=== PATIENT | male | born 1970 | race Caucasian/White ===

== ENCOUNTER 2016-12-08 18:37 | Inpatient (IN) | payer OTHER ==
[~2016-12-08] VITALS: Ht 167.6 cm; Wt 81.6 kg
[~2016-12-08 18:37] MED LIST: METFORMIN HYDR500 MG PO
[2016-12-08 18:51] VITALS: BP 130/77
--- NOTE | 2016-12-08 21:10 | NUR ---
PT TAKEN TO BED 6
--- NOTE | 2016-12-08 21:12 | NUR ---
46/M WITH C/O DESCRIBES NUMBNESS TYPE PAIN OVER RIGHT FRONTAL PARIETAL AREA X 11AM TODAY---DENIES INJURY, NO N/V , DENIES DIZZINESS, BLURRED VISION OVER OD, DENIES WEAKNESS. 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 HX DM, CAD. RX CARBETALOL, ASA, METFORMIN, GLIPIZIDE, LANTUS. ERMD AWARE.
--- NOTE | 2016-12-08 21:22 | NUR ---
Dr. Cervantes evaluating patient at bedside.
--- NOTE | 2016-12-08 22:00 | NUR ---
PT RETURN FROM CT
--- NOTE | 2016-12-08 22:27 | NUR ---
ERMD AWARE OF BSL 191MG/DL.
[2016-12-08] MEDS ORDERED: ASPIRIN 325 MG TAB PO ONE (22:40)
[2016-12-08] MEDS ORDERED: LORazepam 2 MG/ML VIAL IVP PRN (23:05)
[2016-12-08] MEDS ORDERED: MORPHINE SULFATE 2 MG/ML SYR IVP PRN (23:05)
[2016-12-08] MEDS ORDERED: ONDANSETRON 4 MG/2 ML VIAL IVP PRN (23:05)
[2016-12-08] MEDS ORDERED: APAP/BUTAL/CAFF 325/50/40 MG 1 TAB PO PRN (23:10)
[2016-12-08] MEDS ORDERED: DEXTROSE 50% 50 ML SYR IVP PRN (23:15)
[2016-12-08] MEDS ORDERED: NACL 0.9% 1,000 ML IV ONE (23:15)
--- NOTE | 2016-12-08 23:25 | NUR ---
Patient will be admitted to care of DR. PERERA. Admited to TELEMETRY. Will go to room 122B. Belongings list completed. Report GIVEN TO SURAJ LADD.
--- NOTE | 2016-12-08 23:25 | NUR ---
VISUAL ACUITY RIGHT EYE 20/40, LEFT EYE 20/50. DR. GAMEZ AWARE
--- NOTE | 2016-12-09 | NUR ---
ADMITTED 46YEARS OLD MALE FROM ER VIA IVONE, CC:HEADACHE. Dx:R/O CVA. SEE NURSING ADMISSION ASSESSMENT AND HISTORY. ORIENTED TO ROOM AND UNIT ROUTINES. COMPLETE BODY ASSESSMENT WITH DEPARTMENT EDITOR ROY AT BEDSIDE. PLAN OF CARE DISCUSSED WITH PATIENT AT BEDSIDE. CALL LIGHT WITHIN REACH.
[2016-12-09 00:08] VITALS: BP 138/87
[2016-12-09] MEDS: BLOOD GLUCOSE MONITORING 1 DEV DEV FS SCH ×4 (01:06→16:29)
[2016-12-09 04:48] VITALS: BP 133/65
--- NOTE | 2016-12-09 04:51 | NUR ---
SLEEPING WELL. NO COMPLAINS. VITAL SIGNS STABLE. CALL LIGHT WITHIN REACH.
[2016-12-09] MEDS: INSULIN LISPRO SLIDING SCALE 100 UNITS/ML VIAL SUBQ PRN ×3 (05:52→16:39)
--- NOTE | 2016-12-09 07:02 | NUR ---
ENDORSED CARE AT BEDSIDE WITH CHARU RUELAS, PATIENT IN STABLE CONDITION.
--- NOTE | 2016-12-09 07:03 | NUR ---
ALERT AND ORIENTED X4, NO SIGNS OF ACUTE DISTRESS, BREATHING EVEN AND UNLABORED BILATERALLY, ABDOMEN SOFT WITH BOWEL SOUNDS PRESENT IN ALL 4 QUADRANTS, SKIN WARM, DRY AND INTACT, BOWEL AND BLADDER CONTINENCE, AMBULATES INDEPENDENTLY, COMPLAINT OF PAIN 4/10 ON RIGHT SIDE OF HEAD WILL MEDICATE ORDERED PER PRN'S, BED IN LOW POSITION WITH BILATERAL HALF SIDE RAILS UP, CALL LIGHT WITHIN REACH.
[2016-12-09 08:00] VITALS: BP 122/78
--- NOTE | 2016-12-09 08:04 | NUR ---
PATIENT HAS BEEN SCREENED AND CATEGORIZED MODERATE NUTRITION RISK. PATIENT WILL BE SEEN WITHIN 3-5 DAYS OF ADMISSION. 12/11/16-12/13/[address]
[2016-12-09] MEDS ORDERED: LORazepam 1 MG TAB PO PRN (08:10)
[2016-12-09] MEDS ORDERED: ZOLPIDEM 5 MG TAB PO PRN (08:10)
[2016-12-09] MEDS: HYDROcodone/APAP 5/325 MG 1 TAB TAB PO PRN ×2 (08:22→16:32)
[2016-12-09] MEDS: metFORMIN 500 MG TAB PO SCH ×2 (08:22→16:32)
--- NOTE | 2016-12-09 08:30 | NUR ---
RECEIVED NEW ORDERS FROM DR ROSALES FOR UA, SCD'S, NORMAL SALINE IV FLUIDS AT 80ML PER HOUR, AND MEDS WILL EXECUTE ORDERED.
[2016-12-09] MEDS: NACL 0.9% 1,000 ML IV SCH ×2 (08:36→16:33)
[2016-12-09] MEDS ORDERED: ATORVASTATIN 20 MG TAB PO SCH (09:00)
[2016-12-09] MEDS ORDERED: ECOTRIN 81 MG TABEC PO SCH (09:00)
[2016-12-09] MEDS ORDERED: DOCUSATE SODIUM 100 MG GELCAP PO SCH (09:00)
--- NOTE | 2016-12-09 10:43 | NUR ---
FAXED INITIAL REVIEW TO [facility] [phone] PHONE [phone]
[2016-12-09] MEDS ORDERED: METHOCARBAMOL 500 MG TAB PO PRN (10:55)
--- NOTE | 2016-12-09 10:59 | NUR ---
RECEIVED NEW ORDERS FROM DR ROSALES FOR NEW MEDICATION AND K PAD, WILL EXECUTE ORDERED.
[2016-12-09 12:00] VITALS: BP 139/77
[2016-12-09 16:00] VITALS: BP 127/82
[2016-12-09] MEDS ORDERED: ASPIRIN ADULT L81 M2 PO (16:27)
[2016-12-09] MEDS ORDERED: NAPROXEN 500 MG TAB PO SCH (16:30)
--- NOTE | 2016-12-09 16:37 | NUR ---
ISABEL HELD, GAVE LINO AT 1633.
--- NOTE | 2016-12-09 17:15 | NUR ---
PT AWAKE, ALERT AND ORIENTED X4, NO SIGNS OF ACUTE DISTRESS. NO COMPLAINT OF PAIN. EDUCATED PATIENT REGARDING DISCHARGE INSTRUCTIONS OF NEW PRESCRIPTION, HOME MEDICATIONS, SYMPTOMS, SIDE EFFECTS AND PREVENTION OF STROKE, HYPER AND HYPOGLYCEMIA AND HYPERTENSION AND SCHEDULING A FOLLOW UP APPOINTMENT WITH PCP PER DR PERERA WITHIN 1 WEEK OF DISCHARGE, PATIENT VERBALIZED UNDERSTANDING. PROVIDED PATIENT WITH DISCHARGE PACKET. DISCONNECTED IV AND TELE MONITOR. ESCORTED TO [facility], PATIENT DISCHARGED WITH FAMILY VIA PRIVATE AUTO.
== END 2016-12-09 17:15 | disposition home or self-care (01) | DRG 48 ==
LOC: MED 18:37 → MTU 23:03
PROVIDERS: ADMIT Family Medicine; ATTEND Family Medicine
DX: G90.9 Disorder of the autonomic nervous system, unspecified (principal); N17.0 Acute kidney failure with tubular necrosis; E11.65 Type 2 diabetes mellitus with hyperglycemia; E11.40 Type 2 diabetes mellitus with diabetic neuropathy, unspecified; G44.209 Tension-type headache, unspecified, not intractable; I25.10 Atherosclerotic heart disease of native coronary artery without angina pectoris; E78.5 Hyperlipidemia, unspecified; Z53.29 Procedure and treatment not carried out because of patient's decision for other reasons; I10 Essential (primary) hypertension; Z79.899 Other long term (current) drug therapy; Z83.3 Family history of diabetes mellitus; Z82.5 Family history of asthma and other chronic lower respiratory diseases

== ENCOUNTER 2017-01-30 17:58 | Emergency (ER) | payer OTHER ==
[~2017-01-30] VITALS: Ht 167.6 cm; Wt 84.4 kg
[~2017-01-30 17:58] MED LIST changes: +ASPIRIN ADULT L81 M2 PO
--- NOTE | 2017-01-30 19:49 | NUR ---
TO ER OF1
--- NOTE | 2017-01-30 20:00 | NUR ---
Patient being evaluated by physician at bedside.
[2017-01-30] MEDS ORDERED: NEOMYCIN/POLYMYXIN/BACITRACIN 0.9 GM/1 PKT TP ONE (20:10)
[2017-01-30 20:42] VITALS: BP 118/80
--- NOTE | 2017-01-30 20:42 | NUR ---
Patient discharged with v/s stable. Written and verbal after care instructions given and explained. Patient alert, oriented and verbalized understanding of instructions. Ambulatory with steady gait. All questions addressed prior to discharge. ID band removed. Patient advised to follow up with PMD. Rx of BACITRACIN, HYDROCORTISONE1% given. Patient educated on indication of medication including possible reaction and side effects. Opportunity to ask questions provided and answered.
== END 2017-01-30 20:42 | disposition home or self-care (01) ==
LOC: MED 17:58
DX: S60.862A Insect bite (nonvenomous) of left wrist, initial encounter (principal); E11.9 Type 2 diabetes mellitus without complications; I10 Essential (primary) hypertension; J45.909 Unspecified asthma, uncomplicated; W57.XXXA Bitten or stung by nonvenomous insect and other nonvenomous arthropods, initial encounter; Y93.89 Activity, other specified; Y92.89 Other specified places as the place of occurrence of the external cause; Y99.8 Other external cause status

== ENCOUNTER 2019-01-18 20:05 | Emergency (ER) | payer OTHER ==
[~2019-01-18] VITALS: Ht 167.6 cm; Wt 86.2 kg
[~2019-01-18 20:05] MED LIST changes: +ASPI-1173 PO; -ASPIRIN ADULT L81 M2 PO; +METF-335 PO; -METFORMIN HYDR500 MG PO
[2019-01-18 20:06] VITALS: BP 143/79
--- NOTE | 2019-01-18 20:14 | NUR ---
PT TAKEN TO BED 5
--- NOTE | 2019-01-18 20:20 | NUR ---
PT BIB C/O RIGHT FLANK PAIN. PT STATES SUDDEN ONSET OF RIGHT FLANK PAIN RADIATING TO RIGHT SIDE OF PAIN, PAIN STARTED TODAY AT 0300; DENIES N/V/D; PT REPORTS BURNING W/ URINATION 3 WEEKS AGO, BUT NOT AT THIS TIME. +TENDERNESS. PT STATES 9/10 STABBING PAIN. PT ACTING APPROPRIATLY, SPEAKING IN CLEAR AND COMPLETE SENTENCES. PT PLACED IN GOWN; IN BED, BED IN LOWER LOCKED POSITION. PENDING ER MD SHIPLEY. PMH: DIABETES, MILD HEART ATTACK RX: METFORMIN, GLIPIZIDE, ASPIRIN, LABETALOL
[2019-01-18] MEDS ORDERED: KETOROLAC 30 MG/ML VIAL IVP ONE (20:35)
[2019-01-18] MEDS ORDERED: NACL 0.9% 1,000 ML IV ONE ×2 (20:35→21:15)
--- NOTE | 2019-01-18 21:46 | NUR ---
Dr. Gomez evaluating patient at bedside.
--- NOTE | 2019-01-18 22:15 | NUR ---
IV removed, catheter intact and site benign. Applied folded 4x4 gauze and tape to stop bleeding.
[2019-01-18 22:18] VITALS: BP 134/81
== END 2019-01-18 22:16 | disposition home or self-care (01) ==
LOC: MED 20:05
DX: R10.9 Unspecified abdominal pain (principal); I10 Essential (primary) hypertension; E11.9 Type 2 diabetes mellitus without complications; Z79.82 Long term (current) use of aspirin; Z79.84 Long term (current) use of oral hypoglycemic drugs
CPT/HCPCS: 81002; 96374; 99283; J1885; J7030

== ENCOUNTER 2019-05-01 16:28 | Emergency (ER) | payer OTHER ==
[~2019-05-01] VITALS: Ht 165.1 cm; Wt 85.3 kg
[2019-05-01 16:47] VITALS: BP 146/85
[2019-05-01 17:01] VITALS: BP 138/78
== END 2019-05-01 17:10 | disposition home or self-care (01) ==
LOC: MED 16:28
DX: S20.469A Insect bite (nonvenomous) of unspecified back wall of thorax, initial encounter (principal); E11.9 Type 2 diabetes mellitus without complications; I10 Essential (primary) hypertension; Z79.82 Long term (current) use of aspirin; Z79.899 Other long term (current) drug therapy; Z86.79 Personal history of other diseases of the circulatory system; W57.XXXA Bitten or stung by nonvenomous insect and other nonvenomous arthropods, initial encounter; Y92.89 Other specified places as the place of occurrence of the external cause; Y93.89 Activity, other specified; Y99.8 Other external cause status
CPT/HCPCS: 99282

== ENCOUNTER 2019-12-12 04:15 | Emergency (ER) | payer OTHER ==
[~2019-12-12] VITALS: Ht 165.1 cm; Wt 83.0 kg
[2019-12-12 04:29] VITALS: BP 169/85
--- NOTE | 2019-12-12 04:30 | NUR ---
NEGATIVE COVID SCREEN. PT WEARING MASK.
--- NOTE | 2019-12-12 04:33 | NUR ---
PT TAKEN TO BED 4
--- NOTE | 2019-12-12 04:38 | NUR ---
49 Y/O MALE PRESENTS TO ER WITH SORE THROAT X 2 DAYS. 9/10 BURNING PAIN WHEN SWALLOWING. NO WHITE PATCHES, OR FILM NOTED ON TONSILS. ALSO C/O OF COUGH WITH WHITE PHLEGM X 1 DAY. DENIES SOB, R/R EQUAL, AND UNLABORED. DENIES CHEST CONGESTION, NAUSEA, VOMITING, DIARRHEA. SIDE RAIL X1, WILL CONTINUE TO MONITOR. PMHX: DM; HTN NKDA
--- NOTE | 2019-12-12 04:40 | NUR ---
Dr. Segundo examining patient.
[2019-12-12 04:50] VITALS: BP 169/85
--- NOTE | 2019-12-12 04:51 | NUR ---
Patient discharged with v/s stable. Written and verbal after care instructions given and explained. Patient alert, oriented and verbalized understanding of instructions. Ambulatory with steady gait. All questions addressed prior to discharge. ID band removed. Patient advised to follow up with PMD. Rx of AZITHROMYCIN; PROMETHAZINE given. Patient educated on indication of medication including possible reaction and side effects. Opportunity to ask questions provided and answered.
== END 2019-12-12 04:51 | disposition home or self-care (01) ==
LOC: MED 04:15
DX: J02.8 Acute pharyngitis due to other specified organisms (principal); B96.89 Other specified bacterial agents as the cause of diseases classified elsewhere; E11.9 Type 2 diabetes mellitus without complications; I10 Essential (primary) hypertension; Z79.84 Long term (current) use of oral hypoglycemic drugs; Z79.82 Long term (current) use of aspirin
CPT/HCPCS: 99283

== ENCOUNTER 2019-12-14 10:47 | Emergency (ER) | payer OTHER, SELFPAY ==
[~2019-12-14] VITALS: Ht 167.6 cm; Wt 83.9 kg
[2019-12-14 10:50] VITALS: BP 150/86
--- NOTE | 2019-12-14 10:50 | NUR ---
Pt triaged in COVID tent. ERMD made aware of pt status.
--- NOTE | 2019-12-14 11:10 | NUR ---
PATIENT'S ASSESSMENT COMPLETED IN TRIAGE IN TENT AREA, MD DAVIS FACETIMED WITH PATIENT TO ASSESS SYMPTOMS. COVID SWAB ORDERED ALONG WITH CHEST XRAY.
--- NOTE | 2019-12-14 11:11 | NUR ---
49 YR OLD MALE PRESENTS TO THE ED WITH C/O SORE THROAT, COUGH, ANF FEVER X 3 DAYS. PER PT TEMP WAS 101.0 AND TOOK TYLENOL AT 2 AM. CURRENT TEMP 100.5 MD MADE AWARE OF PT STATUS. PT WAS ALSO SEEN HERE THURSDAY WITH SAME COMPLAINTS AND GIVEN Z-RUCHI AND COUGH MED, CAME BACK DUE TO " BEING WORRIED" ALLERGIES: NKA MED HX: DIABETES, HTN
--- NOTE | 2019-12-14 11:45 | NUR ---
XRAY COMPLETED AND COVID 19 NASAL SWAB COMPLETED AND SENT TO LAB.
--- NOTE | 2019-12-14 12:35 | NUR ---
Patient discharged with v/s stable. Written and verbal after care instructions given and explained. Patient alert, oriented and verbalized understanding of instructions. Ambulatory with steady gait. All questions addressed prior to discharge. ID band removed. Patient advised to follow up with PMD. Rx of ALBUTEROL INHALER AND AREOCHAMBER given. Patient educated on indication of medication including possible reaction and side effects. Opportunity to ask questions provided and answered.
--- NOTE | 2019-12-14 12:36 | NUR ---
PATIENT ADVISED HE WILL RECEIVE A FOLLOW-UP CALL REGARDING THE RESULTS OF COVID TEST IN 3-4 DAYS
== END 2019-12-14 12:36 | disposition home or self-care (01) ==
LOC: EEVIPCON 10:47 → MED 10:47
DX: R50.9 Fever, unspecified (principal); Z20.828 Contact with and (suspected) exposure to other viral communicable diseases; R06.02 Shortness of breath; R06.2 Wheezing; I25.2 Old myocardial infarction; E11.9 Type 2 diabetes mellitus without complications; I10 Essential (primary) hypertension; Z98.890 Other specified postprocedural states; Z79.84 Long term (current) use of oral hypoglycemic drugs; Z79.82 Long term (current) use of aspirin
CPT/HCPCS: 36415; 71045; 87635; 99284; Q0092

== ENCOUNTER 2019-12-20 13:39 | Emergency (ER) | payer OTHER, SELFPAY ==
[~2019-12-20] VITALS: Ht 167.6 cm; Wt 83.9 kg
[2019-12-20 13:42] VITALS: BP 133/80
--- NOTE | 2019-12-20 13:55 | NUR ---
C/O HEART PALPITATIONS/FEELING LIKE HIS HEART IS RACING FOR ABOUT 1 WEEK, BUT IT HAS INCREASED OVER THE LAST DAY. PT DENIES N/V. SKIN WARM/DRY. PT STATES HE IS NOT HAVING CHEST PAIN, "IT JUST FEELS UNCOMFORTABLE". HR 67. PT PROVIDED GOWN AND PLACED ON BEDSIDE KEY CARRIER AT THIS TIME. BED IN LOW POSITION, SIDE RAIL UP X1.
--- NOTE | 2019-12-20 14:08 | NUR ---
DR. BERGERON AT BEDSIDE EVALUATING PT
[2019-12-20] MEDS ORDERED: ASPIRIN 325 MG TAB PO ONE (14:10)
--- NOTE | 2019-12-20 14:13 | NUR ---
PT UP AND AMBULATED TO RESTROOM FOR URINE SPECIMEN
--- NOTE | 2019-12-20 14:18 | NUR ---
LAB AT BEDSIDE
--- NOTE | 2019-12-20 14:25 | NUR ---
X-RAY AT BEDSIDE
[2019-12-20 14:44] LABS: BASOPHILS # (AUTO) 0.1 K/uL (0.00-0.22); EOSINOPHILS # (AUTO) 0.2 K/uL (0-0.4); EOSINOPHILS % (AUTO) 2.4 % (0.0-4.0); HEMATOCRIT 42.1 % (36-52); HEMOGLOBIN 13.8 g/dL (12.0-18.0); LYMPHOCYTES # (AUTO) 2.3 K/uL (2.0-11.5); LYMPHOCYTES % (AUTO) 34.2 % (20.5-51.1); MEAN CORPUSCULAR HEMOGLOBIN 31 pg (27-31); MEAN CORPUSCULAR HGB CONC 33 g/dL (33-37); MONOCYTES # (AUTO) 0.4 K/uL (0.8-1.0); MONOCYTES % (AUTO) 5.5 % (1.7-9.3); NEUTROPHILS # (AUTO) 3.8 K/uL (1.8-7.7); NEUTROPHILS % (AUTO) 56.9 % (42.2-75.2); PLATELET COUNT (AUTO) 240 K/uL (140-450); RED BLOOD CELL COUNT(AUTO) 4.48 MIL/uL (4.20-6.10); RED CELL DISTRIBUTION WIDTH 14.4 % (11.6-13.7); WHITE BLOOD COUNT (AUTO) 6.7 K/uL (4.8-10.8)
[2019-12-20 14:55] LABS: ANION GAP 13.1 (8-16); CARBON DIOXIDE 30.3 mmol/L (21-32); CREATININE 0.9 mg/dL (0.6-1.3); POTASSIUM 4.4 mmol/L (3.5-5.1)
[2019-12-20 14:58] LABS: PROTHROMBIN TIME 10.4 secs (10.8-13.4)
[2019-12-20 15:01] LABS: ALBUMIN 3.5 g/dL (3.4-5.0); TOTAL BILIRUBIN 0.3 mg/dL (0.0-1.0)
[2019-12-20 16:32] VITALS: BP 137/86
--- NOTE | 2019-12-20 16:32 | NUR ---
Patient discharged with v/s stable. Written and verbal after care instructions given and explained. Patient verbalized understanding. Ambulatory with steady gait. All questions addressed prior to discharge. Advised to follow up with PMD.
== END 2019-12-20 16:32 | disposition home or self-care (01) ==
LOC: EEVIPCON 13:39 → MED 13:39
DX: R00.2 Palpitations (principal); E11.65 Type 2 diabetes mellitus with hyperglycemia; I10 Essential (primary) hypertension; I25.2 Old myocardial infarction; Z79.84 Long term (current) use of oral hypoglycemic drugs; Z79.82 Long term (current) use of aspirin; Z98.890 Other specified postprocedural states
CPT/HCPCS: 36415; 71045; 80053; 83880; 84484; 85025; 85610; 85730; 93005; 99285; Q0092

== ENCOUNTER 2020-10-05 16:21 | Emergency (ER) | payer OTHER ==
[~2020-10-05] VITALS: Ht 167.6 cm; Wt 84.4 kg
[~2020-10-05 16:21] MED LIST changes: -ASPI-1173 PO; +ASPI-1856 PO
[2020-10-05 16:26] VITALS: BP 122/81
--- NOTE | 2020-10-05 16:38 | NUR ---
50 YEAR OLD MALE COMPLAINS OF RIGHT FLANK PAIN SINCE LAST NIGHT. PT DENIES TRAUMA. PT DENIES PROBLEMS WITH URINATION OR BLOOD IN URINE. PT DENIES NAUSEA, VOMITTING DIARRHEA. PT DENIES KIDNEY STONE HISTORY. PT AOX4, BREATHING EVEN AND UNLABORED, SKIN WARM AND DRY. BED IN LOWEST POSITION, LOCKED, BED RAIL UPX1. PMH- DM2, HTN ALLERGIES - NKA
[2020-10-05] MEDS ORDERED: KETOROLAC 30 MG/ML VIAL IM ONE (17:05)
--- NOTE | 2020-10-05 17:14 | NUR ---
multimedia technician at pt bedside.
--- NOTE | 2020-10-05 17:19 | NUR ---
polysomnographic tech at pt bedside.
[2020-10-05 17:27] LABS: BASOPHILS # (AUTO) 0.1 K/uL (0.00-0.22); BASOPHILS % (AUTO) 0.7 % (0.0-2.0); EOSINOPHILS # (AUTO) 0.1 K/uL (0-0.4); EOSINOPHILS % (AUTO) 1.7 % (0.0-4.0); HEMATOCRIT 43.1 % (36-52); HEMOGLOBIN 14.4 g/dL (12.0-18.0); LYMPHOCYTES # (AUTO) 2.7 K/uL (2.0-11.5); LYMPHOCYTES % (AUTO) 33.7 % (20.5-51.1); MEAN CORPUSCULAR HEMOGLOBIN 31 pg (27-31); MEAN CORPUSCULAR HGB CONC 33 g/dL (33-37); MONOCYTES # (AUTO) 0.4 K/uL (0.8-1.0); MONOCYTES % (AUTO) 5.2 % (1.7-9.3); NEUTROPHILS # (AUTO) 4.7 K/uL (1.8-7.7); NEUTROPHILS % (AUTO) 58.7 % (42.2-75.2); PLATELET COUNT (AUTO) 210 K/uL (140-450); RED BLOOD CELL COUNT(AUTO) 4.58 MIL/uL (4.20-6.10); RED CELL DISTRIBUTION WIDTH 14.7 % (11.6-13.7); WHITE BLOOD COUNT (AUTO) 7.9 K/uL (4.8-10.8)
[2020-10-05 17:40] LABS: ALBUMIN 4.1 g/dL (3.4-5.0); ANION GAP 13.2 (8-16); POTASSIUM 4.2 mmol/L (3.5-5.1); TOTAL BILIRUBIN 0.3 mg/dL (0.0-1.0)
--- NOTE | 2020-10-05 19:09 | NUR ---
report given to yuli abebe. transfer of care at this point
--- NOTE | 2020-10-05 19:15 | NUR ---
RECEIVED REPORT FROM NICANOR RUELAS FOR CONTINUITY OF CARE.
--- NOTE | 2020-10-05 19:20 | NUR ---
Patient discharged with v/s stable. Written and verbal after care instructions given and explained. Patient alert, oriented and verbalized understanding of instructions. Ambulatory with steady gait. All questions addressed prior to discharge. ID band removed. Patient advised to follow up with PMD. Rx of NAPROSYN given. Patient educated on indication of medication including possible reaction and side effects. Opportunity to ask questions provided and answered. Was given copies of US and x-ray scans.
[2020-10-05 19:21] VITALS: BP 134/84
== END 2020-10-05 19:21 | disposition home or self-care (01) ==
LOC: MED 16:21
DX: R10.11 Right upper quadrant pain (principal); E11.9 Type 2 diabetes mellitus without complications; I11.9 Hypertensive heart disease without heart failure
CPT/HCPCS: 36415; 71045; 76705; 80053; 81002; 83690; 85025; 96372; 99285; J1885

== ENCOUNTER 2021-07-07 22:26 | Emergency (ER) | payer OTHER ==
[~2021-07-07] VITALS: Ht 167.6 cm; Wt 83.0 kg
[2021-07-07 22:39] VITALS: BP 157/73
--- NOTE | 2021-07-07 22:47 | NUR ---
PATIENT TO THE BATHROOM AMBULATORY FOR URINE COLLECTION.
--- NOTE | 2021-07-07 22:51 | NUR ---
PT TAKEN TO BED 2
[2021-07-07 23:25] LABS: ALBUMIN 3.7 g/dL (3.4-5.0); CARBON DIOXIDE 31.2 mmol/L (21-32); CREATININE 0.9 mg/dL (0.6-1.3); POTASSIUM 4.2 mmol/L (3.5-5.1); TOTAL BILIRUBIN 0.3 mg/dL (0.0-1.0)
[2021-07-07 23:31] LABS: APPEARANCE,URINE CLEAR (CLEAR); BILIRUBIN,URINE NEGATIVE (NEGATIVE); BLOOD, URINE NEGATIVE (NEGATIVE); COLOR,URINE YELLOW (YELLOW); LEUKOCYTE ESTERASE ,URINE NEGATIVE (NEGATIVE); NITRITE, URINE NEGATIVE (NEGATIVE); PH,URINE 6.5 (5.0-9.0); UGLUCOSE 3+ (NEGATIVE)
[2021-07-07 23:44] LABS: BASOPHILS % (AUTO) 0.6 % (0.0-2.0); EOSINOPHILS # (AUTO) 0.1 K/uL (0-0.4); EOSINOPHILS % (AUTO) 2.7 % (0.0-4.0); HEMATOCRIT 41.5 % (36-52); HEMOGLOBIN 13.7 g/dL (12.0-18.0); LYMPHOCYTES # (AUTO) 2.6 K/uL (2.0-11.5); LYMPHOCYTES % (AUTO) 47.7 % (20.5-51.1); MEAN CORPUSCULAR HEMOGLOBIN 31 pg (27-31); MEAN CORPUSCULAR HGB CONC 33 g/dL (33-37); MEAN CORPUSCULAR VOLUME 93.7 fL (80-94); MONOCYTES # (AUTO) 0.4 K/uL (0.8-1.0); MONOCYTES % (AUTO) 7.6 % (1.7-9.3); NEUTROPHILS # (AUTO) 2.2 K/uL (1.8-7.7); NEUTROPHILS % (AUTO) 41.4 % (42.2-75.2); PLATELET COUNT (AUTO) 171 K/uL (140-450); RED BLOOD CELL COUNT(AUTO) 4.43 MIL/uL (4.20-6.10); RED CELL DISTRIBUTION WIDTH 14.7 % (11.6-13.7); WHITE BLOOD COUNT (AUTO) 5.4 K/uL (4.8-10.8)
[2021-07-08] MEDS: ASPIRIN 325 MG TAB PO ONE (00:59)
[2021-07-08 02:34] VITALS: BP 109/62
--- NOTE | 2021-07-08 02:36 | NUR ---
PATIENT DC HOME STABLE FEELING WELL VITALS SIGNS IN NORMAL LIMITS NOT COMPLAINING OF PAIN ALL DC INSTRUCTION GAVE AND EXPLAINED WE RECOMEND TO FOLLOW UP WITH PCP OR COMING BACK TO THE ED IF THE SYMPTOMS GET WORSE OR NOT IMPROVING //Mary RUELAS
== END 2021-07-08 02:36 | disposition home or self-care (01) ==
LOC: MED 22:26
DX: R07.89 Other chest pain (principal); R60.0 Localized edema; E11.9 Type 2 diabetes mellitus without complications; K21.9 Gastro-esophageal reflux disease without esophagitis; I10 Essential (primary) hypertension; I25.2 Old myocardial infarction; Z79.82 Long term (current) use of aspirin; Z79.899 Other long term (current) drug therapy
CPT/HCPCS: 36415; 71045; 80053; 81003; 82948; 84443; 84484; 85025; 93005; 99285

== ENCOUNTER 2022-04-04 19:47 | Emergency (ER) | payer OTHER ==
[~2022-04-04] VITALS: Ht 167.6 cm; Wt 78.5 kg
[2022-04-04 20:00] VITALS: BP 137/75
--- NOTE | 2022-04-04 20:03 | NUR ---
TO LOBBY A/W BED AMBULATORY
--- NOTE | 2022-04-04 22:53 | NUR ---
PATIENT CALLED TO BE SEEN BY ERMD, NO RESPONSE PATIENT LEFT WITHOUT BEING SEEN BY DR. LOWE. NO FURTHER CARE PROVIDED FOR PATIENT.
--- NOTE | 2022-04-04 23:05 | NUR ---
CALLED FOR THE SECOND TIME , NO RESPONSE
--- NOTE | 2022-04-04 23:10 | NUR ---
CALLED FOR THE THIRD TIME , NO RESPONSE
== END 2022-04-04 22:53 | disposition left against medical advice (07) ==
LOC: MED 19:47
DX: M54.50 Low back pain, unspecified (principal); Z53.21 Procedure and treatment not carried out due to patient leaving prior to being seen by health care provider

== ENCOUNTER 2022-04-07 18:15 | Emergency (ER) | payer OTHER ==
[~2022-04-07] VITALS: Ht 167.6 cm; Wt 82.6 kg
[2022-04-07 18:41] VITALS: BP 146/84
--- NOTE | 2022-04-07 20:01 | NUR ---
PT TAKEN TO BED 12
--- NOTE | 2022-04-07 20:03 | NUR ---
THOMAS GLEZ AT BEDSIDE
--- NOTE | 2022-04-07 20:09 | NUR ---
52 YO M BIB SELF WITH C/C OF 05/03 [place] AREA S/P FALL FROM STAIRS XLAST THURSDAY. PT STATES PAIN IS CONSTANT WORSENS WITH MOVEMENT AND PALPATION. PT DENIES MOTOR AND SENSORY LOSS. NO NUMBNESS OR TINGLING. PT STATES HE TOOK IBUPROFEN THIS MORNING WITH NO RELIEF. HX: DM AND HTN NKA
[2022-04-07] MEDS ORDERED: KETOROLAC 30 MG/ML VIAL IM ONE (20:10)
--- NOTE | 2022-04-07 20:28 | NUR ---
PT MEDICATED PER ORDERS.
--- NOTE | 2022-04-07 20:48 | NUR ---
PT TAKEN TO RAD.
[2022-04-07] MEDS ORDERED: IBUP-2213 PO (21:12)
[2022-04-07] MEDS ORDERED: ACET-8386 PO (21:12)
[2022-04-07 21:47] VITALS: BP 135/75
--- NOTE | 2022-04-07 21:47 | NUR ---
Patient discharged with v/s stable. Written and verbal after care instructions given and explained. Patient alert, oriented and verbalized understanding of instructions. Ambulatory with steady gait. All questions addressed prior to discharge. ID band removed. Patient advised to follow up with PMD. Rx of NORCO AND IBUPROFEN given. Patient educated on indication of medication including possible reaction and side effects. Opportunity to ask questions provided and answered.
== END 2022-04-07 21:47 | disposition home or self-care (01) ==
LOC: MED 18:15
DX: S39.012A Strain of muscle, fascia and tendon of lower back, initial encounter (principal); S30.0XXA Contusion of lower back and pelvis, initial encounter; I10 Essential (primary) hypertension; E11.9 Type 2 diabetes mellitus without complications; K21.9 Gastro-esophageal reflux disease without esophagitis; Z79.4 Long term (current) use of insulin; Z79.899 Other long term (current) drug therapy; X58.XXXA Exposure to other specified factors, initial encounter; Y93.89 Activity, other specified; Y92.89 Other specified places as the place of occurrence of the external cause; Y99.8 Other external cause status
CPT/HCPCS: 72100; 72220; 96372; 99284; J1885

== ENCOUNTER 2022-05-31 07:53 | Inpatient (IN) | payer OTHER ==
[~2022-05-31] VITALS: Ht 167.6 cm; Wt 80.3 kg
[~2022-05-31 07:53] MED LIST changes: +ACET-8386 PO; +IBUP-2213 PO
[2022-05-31 08:04] VITALS: BP 124/65
--- NOTE | 2022-05-31 08:14 | NUR ---
PATIENT AMBULATED TO BED 9.
--- NOTE | 2022-05-31 08:19 | NUR ---
52/M WALKED IN C/O URINARY BURNING, LOW ABD AND BACK PAIN, ACCOMPANIED BY HEADACHE ONSET 2 DAYS. DENIES HX UTI. DENIES NVD. AAO4, AMBULATORY, ACCUCHECK DONE AT TRIAGE. URINE COLLECTED PMH: DM, HTN
[2022-05-31] MEDS ORDERED: NACL 0.9% 1,000 ML IV ONE (08:25)
[2022-05-31] MEDS ORDERED: KETOROLAC 15 MG/ML VIAL IVP ONE (08:25)
[2022-05-31] MEDS ORDERED: cefTRIAXone 1,000 MG VIAL ONE (08:29)
--- NOTE | 2022-05-31 08:53 | NUR ---
hospital plan administrator at bedside for blood draw
[2022-05-31 09:23] LABS: BASOPHILS % (AUTO) 0.2 % (0.0-2.0); EOSINOPHILS % (AUTO) 0.1 % (0.0-4.0); HEMATOCRIT 32.6 % (36-52); HEMOGLOBIN 10.9 g/dL (12.0-18.0); LYMPHOCYTES # (AUTO) 0.9 K/uL (2.0-11.5); LYMPHOCYTES % (AUTO) 6.8 % (20.5-51.1); MEAN CORPUSCULAR HEMOGLOBIN 31 pg (27-31); MEAN CORPUSCULAR HGB CONC 33 g/dL (33-37); MEAN CORPUSCULAR VOLUME 92.4 fL (80-94); MONOCYTES # (AUTO) 0.8 K/uL (0.8-1.0); MONOCYTES % (AUTO) 6.8 % (1.7-9.3); NEUTROPHILS # (AUTO) 10.8 K/uL (1.8-7.7); NEUTROPHILS % (AUTO) 86.1 % (42.2-75.2); PLATELET COUNT (AUTO) 204 K/uL (140-450); RED BLOOD CELL COUNT(AUTO) 3.53 MIL/uL (4.20-6.10); RED CELL DISTRIBUTION WIDTH 14.4 % (11.6-13.7); WHITE BLOOD COUNT (AUTO) 12.5 K/uL (4.8-10.8)
[2022-05-31 09:38] LABS: ANION GAP 9.2 (8-16); CARBON DIOXIDE 27.4 mmol/L (21-32); CREATININE 0.8 mg/dL (0.6-1.3); POTASSIUM 3.6 mmol/L (3.5-5.1); TOTAL BILIRUBIN 0.7 mg/dL (0.0-1.0)
[2022-05-31 11:15] LABS: APPEARANCE,URINE CLEAR (CLEAR); BILIRUBIN,URINE NEGATIVE (NEGATIVE); BLOOD, URINE 1+ (NEGATIVE); COLOR,URINE YELLOW (YELLOW); LEUKOCYTE ESTERASE ,URINE 1+ (NEGATIVE); NITRITE, URINE NEGATIVE (NEGATIVE); UGLUCOSE 1+ (NEGATIVE)
[2022-05-31] MEDS ORDERED: ACETAMINOPHEN EXTRA STRENGTH 500 MG TAB PO ONE (11:55)
[2022-05-31] MEDS ORDERED: ACETAMINOPHEN EXTRA STRENGTH 500 MG TAB ONE (11:55)
[2022-05-31 12:02] LABS: RBC,URINE 0-5 /HPF (0-5); TRICHOMONAS,URINE None Seen /HPF (None Seen); WBC,URINE 80-100 /HPF (0-5); YEAST,URINE None Seen /HPF (None Seen)
[2022-05-31] MEDS ORDERED: TAMS0.4C96 PO (12:51)
[2022-05-31] MEDS ORDERED: CARV6.25 PO (12:51)
[2022-05-31] MEDS ORDERED: METF-1253 PO (12:51)
[2022-05-31] MEDS ORDERED: ONDANSETRON 4 MG/2 ML VIAL IVP PRN (13:00)
[2022-05-31] MEDS ORDERED: MORPHINE SULFATE 4 MG/ML SYR IVP PRN (13:00)
[2022-05-31] MEDS ORDERED: POTASSIUM CHLORIDE 10 MEQ TABER PO PRN (13:00)
[2022-05-31] MEDS ORDERED: MAGNESIUM OXIDE 400 MG TAB PO PRN (13:00)
--- NOTE | 2022-05-31 13:00 | NUR ---
PT AWARE OF ADMISSION
[2022-05-31] MEDS: NACL 0.9% 1,000 ML IV SCH (13:17)
[2022-05-31] MEDS: metroNIDAZOLE 500 MG/NS PREMIX 100 ML IV SCH ×2 (13:38→21:20)
--- NOTE | 2022-05-31 15:12 | NUR ---
DR WEISS AT BEDSIDE.
--- NOTE | 2022-05-31 17:30 | NUR ---
PT AMBULATED TO RESTROOM IN STEADY GAIT
--- NOTE | 2022-05-31 19:09 | NUR ---
PT PROVIDED WITH MEAL
--- NOTE | 2022-05-31 19:15 | NUR ---
HANDOFF REPORT GIVEN TO FLOR RUELAS. ENDORSED PLAN OF CARE.
--- NOTE | 2022-05-31 19:22 | NUR ---
RECIEVED HANDOFF FROM DAY SHIFT (SURAJ KIRKPATRICK).
--- NOTE | 2022-05-31 19:49 | NUR ---
PATIENT REPORTS FEELING WARM, TEMPERATURE CHECKED = 102.9 (ORAL). ADMINISTERED 650MG TYLENOL PER EMAR.
[2022-05-31] MEDS: ACETAMINOPHEN 325 MG TAB PO PRN (19:57)
[2022-06-01] MEDS: NACL 0.9% 1,000 ML IV SCH ×2 (01:30→15:02)
[2022-06-01] MEDS: metroNIDAZOLE 500 MG/NS PREMIX 100 ML IV SCH ×2 (04:56→13:37)
[2022-06-01] MEDS: ACETAMINOPHEN 325 MG TAB PO PRN ×2 (04:57→16:15)
[2022-06-01 06:29] LABS: BASOPHILS # (AUTO) 0.1 K/uL (0.00-0.22); BASOPHILS % (AUTO) 0.4 % (0.0-2.0); EOSINOPHILS % (AUTO) 0.1 % (0.0-4.0); HEMATOCRIT 30.8 % (36-52); HEMOGLOBIN 10.3 g/dL (12.0-18.0); LYMPHOCYTES # (AUTO) 1.4 K/uL (2.0-11.5); LYMPHOCYTES % (AUTO) 10.6 % (20.5-51.1); MEAN CORPUSCULAR HEMOGLOBIN 31 pg (27-31); MEAN CORPUSCULAR HGB CONC 33 g/dL (33-37); MEAN CORPUSCULAR VOLUME 92.9 fL (80-94); MONOCYTES % (AUTO) 7.4 % (1.7-9.3); NEUTROPHILS # (AUTO) 10.9 K/uL (1.8-7.7); NEUTROPHILS % (AUTO) 81.5 % (42.2-75.2); PLATELET COUNT (AUTO) 200 K/uL (140-450); RED BLOOD CELL COUNT(AUTO) 3.31 MIL/uL (4.20-6.10); RED CELL DISTRIBUTION WIDTH 14.3 % (11.6-13.7); WHITE BLOOD COUNT (AUTO) 13.4 K/uL (4.8-10.8)
[2022-06-01 06:44] LABS: CREATININE 0.9 mg/dL (0.6-1.3)
--- NOTE | 2022-06-01 07:22 | NUR ---
Pt report given to BRIELLE (SURAJ YOST). Transfer of care at this time.
--- NOTE | 2022-06-01 07:23 | NUR ---
REPORT RECEIVED FROM FLOR RUELAS . TRANSFER OF CARE AT THIS TIME
--- NOTE | 2022-06-01 07:30 | NUR ---
pt at rest w/ eyes closed. respirations even and unlabored.
--- NOTE | 2022-06-01 08:10 | NUR ---
pt provided w/ breakfast. pt awake, repositioned and eating in bed
--- NOTE | 2022-06-01 08:15 | NUR ---
PT AMBULATED TO RESTROOM
--- NOTE | 2022-06-01 08:19 | NUR ---
PT AMBULATED BACK TO ROOM
[2022-06-01] MEDS ORDERED: cefTRIAXone 1,000 MG VIAL ONE (09:35)
[2022-06-01] MEDS: DOCUSATE SODIUM 100 MG GELCAP PO SCH (09:38)
--- NOTE | 2022-06-01 10:14 | NUR ---
MD WEISS AT BEDSIDE FOR EVALUATION
--- NOTE | 2022-06-01 10:46 | NUR ---
PATIENT HAS BEEN SCREENED AND CATEGORIZED LOW NUTRITION RISK. PATIENT WILL BE SEEN WITHIN 7 DAYS OF ADMISSION. 05/31/22-06/07/[address] Addendum: 06/04/22 at [address] PATIENT HAS BEEN SCREENED AND CATEGORIZED LOW NUTRITION RISK. PATIENT WILL BE SEEN WITHIN 7 DAYS OF ADMISSION. 06/02/22-06/09/[address]
--- NOTE | 2022-06-01 12:08 | NUR ---
pt provided with lunch. pt awake and eating in bed
--- NOTE | 2022-06-01 14:44 | NUR ---
Patient will be admitted to care of MD WEISS. Admited to [facility]. Will go to room 111A. Belongings list completed. Report to AWILDA RUELAS.
--- NOTE | 2022-06-01 14:45 | NUR ---
The patient's care was reviewed and supervised by Madelyn Boone RN.
[2022-06-01 16:00] VITALS: BP 127/66
[2022-06-01] MEDS ORDERED: DEXTROSE 50% 50 ML SYR IVP PRN (18:25)
[2022-06-01] MEDS: MEROPENEM 1,000 MG in NACL 0.9% 50 ML IV SCH (20:58)
[2022-06-01] MEDS: BLOOD GLUCOSE MONITORING 1 DEV DEV FS SCH (20:59)
[2022-06-01] MEDS: INSULIN LANTUS 100 UNITS/ML 10 ML VIAL SUBQ SCH (21:00)
[2022-06-01] MEDS: INSULIN LISPRO SLIDING SCALE 100 UNITS/ML VIAL SUBQ PRN (21:03)
[2022-06-01 22:15] VITALS: BP 127/66
[2022-06-02] MEDS: NACL 0.9% 1,000 ML IV SCH ×2 (02:39→15:12)
[2022-06-02] MEDS: MEROPENEM 1,000 MG in NACL 0.9% 50 ML IV SCH ×2 (05:00→12:49)
[2022-06-02 06:24] VITALS: BP 121/69
[2022-06-02] MEDS: BLOOD GLUCOSE MONITORING 1 DEV DEV FS SCH ×4 (06:47→21:00)
[2022-06-02] MEDS: INSULIN LISPRO SLIDING SCALE 100 UNITS/ML VIAL SUBQ PRN ×4 (06:48→22:13)
[2022-06-02 06:54] LABS: CARBON DIOXIDE 25.9 mmol/L (21-32); CREATININE 0.9 mg/dL (0.6-1.3); POTASSIUM 3.9 mmol/L (3.5-5.1)
[2022-06-02 06:55] LABS: BASOPHILS % (AUTO) 0.4 % (0.0-2.0); EOSINOPHILS % (AUTO) 0.3 % (0.0-4.0); HEMATOCRIT 30.6 % (36-52); HEMOGLOBIN 10.3 g/dL (12.0-18.0); LYMPHOCYTES # (AUTO) 1.9 K/uL (2.0-11.5); LYMPHOCYTES % (AUTO) 14.8 % (20.5-51.1); MEAN CORPUSCULAR HEMOGLOBIN 31 pg (27-31); MEAN CORPUSCULAR HGB CONC 34 g/dL (33-37); MONOCYTES # (AUTO) 1.1 K/uL (0.8-1.0); MONOCYTES % (AUTO) 8.4 % (1.7-9.3); NEUTROPHILS % (AUTO) 76.1 % (42.2-75.2); PLATELET COUNT (AUTO) 222 K/uL (140-450); RED BLOOD CELL COUNT(AUTO) 3.32 MIL/uL (4.20-6.10); RED CELL DISTRIBUTION WIDTH 13.8 % (11.6-13.7); WHITE BLOOD COUNT (AUTO) 13.1 K/uL (4.8-10.8)
[2022-06-02] MEDS: TAMSULOSIN 0.4 MG CAP PO SCH (08:47)
[2022-06-02] MEDS: DOCUSATE SODIUM 100 MG GELCAP PO SCH (09:17)
--- NOTE | 2022-06-02 11:20 | NUR ---
RECEIVED REPORT FROM CAMPUS RECRUITING INTERNSHIP NURSE. NO S/S OF DISTRESS. CALL LIGHT IN REACH. ALL SAFETY MEASURES IN PLACE. IV RUNNING PER MD ORDER
[2022-06-02 12:00] VITALS: BP 108/66
--- NOTE | 2022-06-02 15:00 | NUR ---
IV LEAKING, CANNULA INTACT. NEW IV INSERTED IN RFA 20G
--- NOTE | 2022-06-02 15:59 | NUR ---
DC PLANNING SW MET WITH PT AT BEDSIDE TO COMPLETE ASSESSMENT. PATIENT REPORTS RESIDING AT HOME WITH HIS AT THE ADDRESS LISTED ON FILE. PATIENT IDENTIFIED MARIA ELENA CORTEZ (SPOUSE) EMERGENCY CONTACT AND MDM. PATIENT DENIED HAVING AD IN PLACE AND ACCEPTED AD OFFERED BY SW. PATIENT REPORTS MEETING WITH PCP, REGULARLY , LAST VISIT; 3 MONTHS AGO. PATIENT REPORTS MEDICATION COMPLIANCE AND DENIES BARRIERS IN ACCESS TO MEDICATION NEEDED. PATIENT REPORTS PICKING UP MEDICATION FROM [employer], WHEN NEEDED. PT DENIES MH/SA HX. PATIENT REPORTS HX OF DIABETES AND REPORTS NUTRITION COMPLIANCE AND REPORTS THAT DIABETES S WELL MANAGED. PATIENT REPORTS DC PLAN IS TO RETUN HOME WITH HIS PROVIDING TRANSPORTATION AND AIDING IN REQUIRED CARE IF NEEDED.
[2022-06-02 16:00] VITALS: BP 113/67
--- NOTE | 2022-06-02 19:20 | NUR ---
RECEIVED ENDORSEMENT FORM DAY SHIFT NURSE FOR CONTINUITY OF PT CARE. PT IS ON BED AWAKE, ALERT AND VERBALLY RESPONSIVE. IV SITE ON RIGHT FOREARM 20G INTACT AND PATENT. PT IS ON CCHO DIET. PT CONSUMED 100% OF DINNER. PT IS ON STABLE CONDITION. CONTINUE TO MONITOR.
[2022-06-02] MEDS ORDERED: GENTAMICIN PER PHARMACY MC PRN ×2 (19:50→20:25)
[2022-06-02] MEDS: INSULIN LANTUS 100 UNITS/ML 10 ML VIAL SUBQ SCH (21:00)
--- NOTE | 2022-06-02 21:00 | NUR ---
BLOOD SUGAR CHECKED = 215 = 4 UNITS HUMOLOG INSULIN ADMINISTERED.
[2022-06-02] MEDS ORDERED: GENTAMICIN IV ONE (21:15)
[2022-06-02] MEDS ORDERED: DEXTROSE 5% IV ONE (21:15)
[2022-06-02] MEDS ORDERED: GENTAMICIN 80 MG/2 ML VIAL ONE (21:28)
--- NOTE | 2022-06-03 02:14 | NUR ---
PT ASLEEP, NO SOB OR DISTRESS.
[2022-06-03] MEDS: NACL 0.9% 1,000 ML IV SCH ×3 (03:30→21:05)
[2022-06-03 04:00] VITALS: BP 121/63
[2022-06-03 06:42] LABS: BASOPHILS % (AUTO) 0.5 % (0.0-2.0); EOSINOPHILS # (AUTO) 0.1 K/uL (0-0.4); EOSINOPHILS % (AUTO) 1.2 % (0.0-4.0); HEMATOCRIT 30.5 % (36-52); HEMOGLOBIN 10.3 g/dL (12.0-18.0); LYMPHOCYTES # (AUTO) 2.2 K/uL (2.0-11.5); MEAN CORPUSCULAR HEMOGLOBIN 31 pg (27-31); MEAN CORPUSCULAR HGB CONC 34 g/dL (33-37); MEAN CORPUSCULAR VOLUME 91.5 fL (80-94); MONOCYTES # (AUTO) 0.7 K/uL (0.8-1.0); MONOCYTES % (AUTO) 7.5 % (1.7-9.3); NEUTROPHILS # (AUTO) 6.5 K/uL (1.8-7.7); NEUTROPHILS % (AUTO) 67.8 % (42.2-75.2); PLATELET COUNT (AUTO) 238 K/uL (140-450); RED BLOOD CELL COUNT(AUTO) 3.34 MIL/uL (4.20-6.10); WHITE BLOOD COUNT (AUTO) 9.6 K/uL (4.8-10.8)
[2022-06-03] MEDS: BLOOD GLUCOSE MONITORING 1 DEV DEV FS SCH ×4 (07:02→21:53)
[2022-06-03] MEDS: INSULIN LISPRO SLIDING SCALE 100 UNITS/ML VIAL SUBQ PRN ×4 (07:04→22:03)
[2022-06-03 07:08] LABS: CARBON DIOXIDE 27.2 mmol/L (21-32); CREATININE 0.7 mg/dL (0.6-1.3); POTASSIUM 4.2 mmol/L (3.5-5.1)
--- NOTE | 2022-06-03 07:15 | NUR ---
RECEIVED ENDORSEMENT FORM SOCK LINER NURSE PARISH FOR CONTINUITY OF PT CARE. PT IS RESTING IN BED, NO SIGNS OF DISTRESS ON RA. SKIN IS INTACT. IV SITE ON RIGHT FOREARM 20G INTACT AND PATENT. PT IS AMBULATORY. PT IS ON STABLE CONDITION. ALL SAFETY MEASURES MEET AT THIS TIME, CALL LIGNT WITHIN REACH, BED IN LOW POSITION. WILL CONTINUE TO MONITOR.
[2022-06-03] MEDS: TAMSULOSIN 0.4 MG CAP PO SCH (09:47)
[2022-06-03] MEDS: DOCUSATE SODIUM 100 MG GELCAP PO SCH (09:47)
[2022-06-03] MEDS: HYDROcodone/APAP 5/325 MG 1 TAB TAB PO PRN (11:27)
[2022-06-03] MEDS: GENTAMICIN 400 MG in DEXTROSE 5% 100 ML IV SCH (11:27)
--- NOTE | 2022-06-03 11:27 | NUR ---
GAVE PT PRN PAIN MEDICATION OF NORCO FOR A 6/10 PAIN.
[2022-06-03 12:00] VITALS: BP 113/63
[2022-06-03] MEDS: guaiFENesin 20 MG/ML UDC PO PRN ×2 (13:57→23:20)
--- NOTE | 2022-06-03 13:57 | NUR ---
GAVE PT PRN COUGH MEDICATION OF ROBITUSSIN FOR HIS DRY COUGH.
--- NOTE | 2022-06-03 15:07 | NUR ---
PT RESTING IN BED. ALL NEEDS MET AT THIS TIME WILL CONTINUE TO MONITOR.
--- NOTE | 2022-06-03 19:20 | NUR ---
ENDORSED TO DESIGN QUALITY ENGINEER NURSE PARISH. PATIENT IS STABLE.
--- NOTE | 2022-06-03 19:30 | NUR ---
RECEIVED ENDORSEMENT FROM DAY SHIFT NURSE LAURY FOR CONTINUITY OF CARE. PT IS AWAKE, ALERT, ORIENTED X 4 AND ABLE TO VERBALIZED NEEDS. IV SALINE LOCK ON RIGHT FOREARM INTACT AND PATENT, NO SIGN/SYMPTOM OF INFECTION ON IV SITE. BLADDER SCAN EVERY SHIFT. CONTINUE MONITORING.
[2022-06-03 20:00] VITALS: BP 131/63
--- NOTE | 2022-06-03 21:53 | NUR ---
BLOOD SUGAR CHECKED = 233 =4 UNITS
[2022-06-03] MEDS: INSULIN LANTUS 100 UNITS/ML 10 ML VIAL SUBQ SCH (21:59)
--- NOTE | 2022-06-03 23:20 | NUR ---
PT COMPLAINTS OF HAVING DRY COUGH, COUGH SYRUP ADMINISTERED ORDERED.
[2022-06-04 04:00] VITALS: BP 122/66
[2022-06-04] MEDS: NACL 0.9% 1,000 ML IV SCH ×2 (04:30→17:00)
[2022-06-04] MEDS: HYDROcodone/APAP 5/325 MG 1 TAB TAB PO PRN (06:31)
--- NOTE | 2022-06-04 06:31 | NUR ---
PT COMPLAINTS OF HEADACHE AND BACK PAIN OF 5/10, NORCO ADMINISTERED ORDERED.
[2022-06-04] MEDS: BLOOD GLUCOSE MONITORING 1 DEV DEV FS SCH ×3 (06:39→16:52)
[2022-06-04] MEDS: INSULIN LISPRO SLIDING SCALE 100 UNITS/ML VIAL SUBQ PRN ×2 (06:42→12:41)
--- NOTE | 2022-06-04 06:42 | NUR ---
BLOOD SUGAR CHECK = 172 = 2 UNITS OF HUMOLOG INSULIN. PT WELL TOLERATED.
[2022-06-04 06:54] LABS: ANION GAP 11.7 (8-16); CARBON DIOXIDE 26.5 mmol/L (21-32); CREATININE 0.7 mg/dL (0.6-1.3); POTASSIUM 4.2 mmol/L (3.5-5.1)
[2022-06-04 07:24] LABS: BASOPHILS # (AUTO) 0.1 K/uL (0.00-0.22); EOSINOPHILS # (AUTO) 0.1 K/uL (0-0.4); HEMATOCRIT 31.1 % (36-52); HEMOGLOBIN 10.2 g/dL (12.0-18.0); LYMPHOCYTES # (AUTO) 1.8 K/uL (2.0-11.5); LYMPHOCYTES % (AUTO) 21.2 % (20.5-51.1); MEAN CORPUSCULAR HEMOGLOBIN 31 pg (27-31); MEAN CORPUSCULAR HGB CONC 33 g/dL (33-37); MEAN CORPUSCULAR VOLUME 93.3 fL (80-94); MONOCYTES # (AUTO) 0.7 K/uL (0.8-1.0); MONOCYTES % (AUTO) 7.8 % (1.7-9.3); PLATELET COUNT (AUTO) 257 K/uL (140-450); RED BLOOD CELL COUNT(AUTO) 3.33 MIL/uL (4.20-6.10); RED CELL DISTRIBUTION WIDTH 14.2 % (11.6-13.7); WHITE BLOOD COUNT (AUTO) 8.6 K/uL (4.8-10.8)
--- NOTE | 2022-06-04 07:35 | NUR ---
PT IS ON STABLE CONDITION. ALL SAFETY MEASURES IN PLACE. ENDORSED TO DAY SHIFT NURSE FOR CONTINUITY. OF CARE.
--- NOTE | 2022-06-04 07:35 | NUR ---
RECEIVED ENDORSEMENT FORM GLOVE WRAPPER NURSE PARISH FOR CONTINUITY OF PT CARE. PT IS RESTING IN BED, NO SIGNS OF DISTRESS ON RA. SKIN IS INTACT. IV SITE ON RIGHT FOREARM 20G INTACT AND PATENT. PT IS AMBULATORY. PT IS ON STABLE CONDITION. ALL SAFETY MEASURES MEET AT THIS TIME, CALL LIGNT WITHIN REACH, BED IN LOW POSITION. WILL CONTINUE TO MONITOR.
[2022-06-04] MEDS: DOCUSATE SODIUM 100 MG GELCAP PO SCH (09:12)
[2022-06-04] MEDS: TAMSULOSIN 0.4 MG CAP PO SCH (09:12)
[2022-06-04] MEDS: GENTAMICIN 400 MG in DEXTROSE 5% 100 ML IV SCH (11:00)
[2022-06-04 12:00] VITALS: BP 125/69
--- NOTE | 2022-06-04 12:00 | NUR ---
PT IS RESTING IN BED. WILL CONTINUE TO MONITOR
[2022-06-04] MEDS: guaiFENesin 20 MG/ML UDC PO PRN (12:40)
--- NOTE | 2022-06-04 12:40 | NUR ---
PROVIDED PT WITH ROBITUSSIN PRN FOR HIS COUGH.
[2022-06-04] MEDS ORDERED: PIPERACILLIN/TAZOBACTAM 3.375 GM in DEXTROSE 5% 50 ML IV SCH (14:30)
--- NOTE | 2022-06-04 16:16 | NUR ---
DC PLANNING: PATIENT WILL BE GOING HOME WITH HOME HEALTH. [facility] PHONE # [phone] [facility] [phone] WILL DELIVER THE ABX AT HOME TONIGHT. PATIENT AWARE OF THE HOME INFUSION AND HOME HEALTH INFORMATION GIVEN TO PATIENT. CM TO FOLLOW
[2022-06-04] MEDS ORDERED: GENT10SO8 IV (17:56)
[2022-06-04] MEDS ORDERED: ACET-1182 PO (17:56)
--- NOTE | 2022-06-04 18:15 | NUR ---
PT DC IS STABLE CONDITION. PT HAD MIDLINE WHEN DC TO INFUSE IV ANTIBIOTICS AT HOME. THE IV WAS PATENT AND INTACT. PT SHOWED NO SIGNS OF DISTRESS, NO LABORED BREATHING, SKIN INTACT AND STEADY GAIT. PT TOLD TO FOLLOW UP WITH PCP IN A WEEK AND ADVISED IF PAIN OR DEVELOPS A FEVER HE SHOULD COME BACK TO THE HOSPITAL.
== END 2022-06-04 18:15 | disposition home or self-care (01) | DRG 720 ==
LOC: MED 07:53 → MTU 13:01 → OBSVTOIN 06-02 11:16
PROVIDERS: ADMIT Student in an Organized Health Care Education/Training Program; ATTEND Student in an Organized Health Care Education/Training Program
PROC: 05HY33Z Insertion of Infusion Device into Upper Vein, Percutaneous Approach (ICD-10-PCS; principal; 2022-06-02)
DX: A41.52 Sepsis due to Pseudomonas (principal); D84.9 Immunodeficiency, unspecified; R64 Cachexia; N39.0 Urinary tract infection, site not specified; N41.9 Inflammatory disease of prostate, unspecified; K21.9 Gastro-esophageal reflux disease without esophagitis; N40.0 Benign prostatic hyperplasia without lower urinary tract symptoms; J45.909 Unspecified asthma, uncomplicated; I10 Essential (primary) hypertension; E11.9 Type 2 diabetes mellitus without complications; Z20.822 Contact with and (suspected) exposure to COVID-19; Z87.891 Personal history of nicotine dependence; Z79.82 Long term (current) use of aspirin; Z79.891 Long term (current) use of opiate analgesic; Z79.899 Other long term (current) drug therapy; B96.5 Pseudomonas (aeruginosa) (mallei) (pseudomallei) as the cause of diseases classified elsewhere
CPT/HCPCS: 96365; 96375; 99285; G0378; 36415; 76770; 80048; 80053; 80170; 81001; 82948; 83605; 85025; 87040; 87081; 87086; J0696; J1580; J1644; J1815; J1885; J2185; J2543; J3490; J7060; Q0092

== ENCOUNTER 2022-06-10 08:52 | Emergency (ER) | payer OTHER ==
[~2022-06-10] VITALS: Ht 167.6 cm; Wt 79.6 kg
[~2022-06-10 08:52] MED LIST changes: +ACET-1182 PO; +CARV6.25 PO; +GENT10SO8 IV; +METF-1253 PO; +TAMS0.4C96 PO
[2022-06-10 09:13] VITALS: BP 131/71
--- NOTE | 2022-06-10 11:13 | NUR ---
PT AMB TO BED 11.
--- NOTE | 2022-06-10 12:20 | NUR ---
52 MALE PRESENTS TO ED REQUESTING LEFT UPPER ARM PICC LINE BE REMOVED. PT REPORTS HE WAS ADMITTED HERE 06/02/22 AND HAD A PICC LINE PLACED FOR ABX. REPORTS HE HAS SINCE COMPLETED COURSE OF ABX. PT DENIES PAIN FEVERS OR CHILLS. NO REDNESS SWELLING OR TENDERNESS NOTED TO SITE.
[2022-06-10 12:26] VITALS: BP 131/71
--- NOTE | 2022-06-10 12:26 | NUR ---
Patient discharged with v/s stable. Written and verbal after care instructions ABOUT PICC REMOVAL given and explained. Patient verbalized understanding. Ambulatory with steady gait. All questions addressed prior to discharge. Advised to follow up with PMD.
== END 2022-06-10 12:26 | disposition home or self-care (01) ==
LOC: MED 08:52
DX: Z45.2 Encounter for adjustment and management of vascular access device (principal)
CPT/HCPCS: 99281

== ENCOUNTER 2022-08-20 11:14 | Emergency (ER) | payer OTHER ==
[~2022-08-20] VITALS: Ht 167.6 cm; Wt 81.2 kg
[~2022-08-20 11:14] MED LIST changes: -ACET-8386 PO; +ACET-8905 PO
[2022-08-20 11:41] VITALS: BP 125/75
--- NOTE | 2022-08-20 12:00 | NUR ---
52 y/o male, c/o lower right abd pain for 2 days. denies n/v/d, constipation, dysuria, hematuria. denies any sick contacts. pt states pain hurts more with sitting. pmh: dm2, htn nka
[2022-08-20 12:33] LABS: BASOPHILS % (AUTO) 0.7 % (0.0-2.0); EOSINOPHILS # (AUTO) 0.1 K/uL (0-0.4); EOSINOPHILS % (AUTO) 1.8 % (0.0-4.0); HEMATOCRIT 38.2 % (36-52); HEMOGLOBIN 12.5 g/dL (12.0-18.0); LYMPHOCYTES # (AUTO) 2.1 K/uL (2.0-11.5); LYMPHOCYTES % (AUTO) 31.3 % (20.5-51.1); MEAN CORPUSCULAR HEMOGLOBIN 29 pg (27-31); MEAN CORPUSCULAR HGB CONC 33 g/dL (33-37); MEAN CORPUSCULAR VOLUME 88.3 fL (80-94); MONOCYTES # (AUTO) 0.3 K/uL (0.8-1.0); MONOCYTES % (AUTO) 5.2 % (1.7-9.3); NEUTROPHILS # (AUTO) 4.1 K/uL (1.8-7.7); PLATELET COUNT (AUTO) 255 K/uL (140-450); RED BLOOD CELL COUNT(AUTO) 4.33 MIL/uL (4.20-6.10); RED CELL DISTRIBUTION WIDTH 14.8 % (11.6-13.7); WHITE BLOOD COUNT (AUTO) 6.7 K/uL (4.8-10.8)
[2022-08-20 12:46] LABS: APPEARANCE,URINE CLEAR (CLEAR); BILIRUBIN,URINE NEGATIVE (NEGATIVE); BLOOD, URINE NEGATIVE (NEGATIVE); COLOR,URINE YELLOW (YELLOW); LEUKOCYTE ESTERASE ,URINE NEGATIVE (NEGATIVE); NITRITE, URINE NEGATIVE (NEGATIVE); UGLUCOSE 3+ (NEGATIVE)
[2022-08-20 12:48] LABS: ALBUMIN 3.5 g/dL (3.4-5.0); ANION GAP 10.1 (8-16); CARBON DIOXIDE 31.6 mmol/L (21-32); CREATININE 0.8 mg/dL (0.6-1.3); POTASSIUM 4.7 mmol/L (3.5-5.1); TOTAL BILIRUBIN 0.3 mg/dL (0.0-1.0)
[2022-08-20] MEDS ORDERED: KETOROLAC 30 MG/ML VIAL IM ONE (12:50)
[2022-08-20 12:53] LABS: RBC,URINE NONE SEEN /HPF (0-5); WBC,URINE 0-5 /HPF (0-5)
[2022-08-20] MEDS ORDERED: KETOROLAC 30 MG/ML VIAL ONE (14:19)
[2022-08-20 16:09] VITALS: BP 125/75
== END 2022-08-20 16:07 | disposition home or self-care (01) ==
LOC: MED 11:14
DX: R10.84 Generalized abdominal pain (principal); E11.9 Type 2 diabetes mellitus without complications; K21.9 Gastro-esophageal reflux disease without esophagitis; I10 Essential (primary) hypertension; Z79.899 Other long term (current) drug therapy; Z79.84 Long term (current) use of oral hypoglycemic drugs; Z98.890 Other specified postprocedural states
CPT/HCPCS: 36415; 74176; 80053; 81001; 83690; 85025; 96372; 99284; J1885

== ENCOUNTER 2023-05-31 21:36 | Emergency (ER) | payer OTHER ==
[~2023-05-31] VITALS: Ht 167.6 cm; Wt 78.9 kg
[2023-05-31 21:59] VITALS: BP 131/82; PULSE 72; RESP 16; TEMP 97.4; O2SAT 97
[2023-06-01] MEDS ORDERED: IBUP-2213 PO (15:28)
== END 2023-06-01 00:22 | disposition left against medical advice (07) ==
LOC: MED 21:36
DX: M79.675 Pain in left toe(s) (principal); Z53.21 Procedure and treatment not carried out due to patient leaving prior to being seen by health care provider
CPT/HCPCS: 99281

== ENCOUNTER 2023-06-01 13:01 | Emergency (ER) | payer OTHER ==
[~2023-06-01] VITALS: Ht 167.6 cm; Wt 78.9 kg
[2023-06-01 13:38] VITALS: BP 115/78; PULSE 60; RESP 18; TEMP 96.8; O2SAT 99
[2023-06-01] MEDS ORDERED: IBUPROFEN 600 MG TAB PO ONE (13:50)
[2023-06-01] MEDS ORDERED: IBUP-2213 PO (15:28)
== END 2023-06-01 15:48 | disposition home or self-care (01) ==
LOC: MED 13:01
DX: S90.122A Contusion of left lesser toe(s) without damage to nail, initial encounter (principal); E11.9 Type 2 diabetes mellitus without complications; K21.9 Gastro-esophageal reflux disease without esophagitis; I10 Essential (primary) hypertension; Z79.899 Other long term (current) drug therapy; Z79.1 Long term (current) use of non-steroidal anti-inflammatories (NSAID); Z79.82 Long term (current) use of aspirin; W22.8XXA Striking against or struck by other objects, initial encounter; Y93.89 Activity, other specified; Y92.89 Other specified places as the place of occurrence of the external cause; Y99.8 Other external cause status
CPT/HCPCS: 73660; 99283

== ENCOUNTER 2023-10-09 19:30 | Emergency (ER) | payer OTHER ==
[~2023-10-09] VITALS: Ht 167.6 cm; Wt 78.9 kg
[2023-10-09 19:48] VITALS: BP 146/67; PULSE 60; RESP 16; TEMP 97.6; O2SAT 98
[2023-10-09 20:20] LABS: APPEARANCE,URINE CLEAR (CLEAR); BILIRUBIN,URINE NEGATIVE (NEGATIVE); BLOOD, URINE NEGATIVE (NEGATIVE); COLOR,URINE YELLOW (YELLOW); LEUKOCYTE ESTERASE ,URINE NEGATIVE (NEGATIVE); NITRITE, URINE NEGATIVE (NEGATIVE); PROTEIN,URINE NEGATIVE (NEGATIVE); UGLUCOSE 3+ (NEGATIVE); UROBILINOGEN,URINE 0.2 EU/dL (0.2 - 1)
[2023-10-09] MEDS ORDERED: CEPH-588 PO (21:17)
[2023-10-09] MEDS ORDERED: IBUP-2213 PO (21:22)
== END 2023-10-09 21:30 | disposition home or self-care (01) ==
LOC: MED 19:30
DX: R30.0 Dysuria (principal); N99.518 Other cystostomy complication; K21.9 Gastro-esophageal reflux disease without esophagitis; I10 Essential (primary) hypertension; E11.9 Type 2 diabetes mellitus without complications; Z79.4 Long term (current) use of insulin; Z79.899 Other long term (current) drug therapy
CPT/HCPCS: 81003; 99283

== ENCOUNTER 2023-12-13 18:00 | Emergency (ER) | payer OTHER ==
[~2023-12-13] VITALS: Ht 167.6 cm; Wt 80.7 kg
[~2023-12-13 18:00] MED LIST changes: +CEPH-588 PO
[2023-12-13 18:29] VITALS: BP 137/82; PULSE 85; RESP 18; TEMP 98.2; O2SAT 98
[2023-12-13] MEDS: ACETAMINOPHEN EXTRA STRENGTH 500 MG TAB PO ONE (18:54)
[2023-12-13] MEDS: ONDANSETRON 4 MG ODT PO ONE (18:54)
[2023-12-13] MEDS: KETOROLAC 30 MG/ML VIAL IM ONE (18:55)
[2023-12-13 18:58] LABS: BASOPHILS % (AUTO) 0.2 % (0.0-2.0); EOSINOPHILS # (AUTO) 0.1 K/uL (0-0.4); HEMATOCRIT 41.7 % (36-52); HEMOGLOBIN 13.8 g/dL (12.0-18.0); LYMPHOCYTES # (AUTO) 0.9 K/uL (2.0-11.5); LYMPHOCYTES % (AUTO) 12.6 % (20.5-51.1); MEAN CORPUSCULAR HEMOGLOBIN 30 pg (27-31); MEAN CORPUSCULAR HGB CONC 33 g/dL (33-37); MEAN CORPUSCULAR VOLUME 90.5 fL (80-94); MONOCYTES # (AUTO) 0.3 K/uL (0.8-1.0); NEUTROPHILS % (AUTO) 82.2 % (42.2-75.2); PLATELET COUNT (AUTO) 223 K/uL (140-450); RED BLOOD CELL COUNT(AUTO) 4.61 MIL/uL (4.20-6.10); RED CELL DISTRIBUTION WIDTH 16.7 % (11.6-13.7); WHITE BLOOD COUNT (AUTO) 7.3 K/uL (4.8-10.8)
[2023-12-13 19:03] LABS: FLU A ANTIGEN negative (NEGATIVE); FLU B ANTIGEN negative (NEGATIVE)
[2023-12-13 19:19] LABS: ALBUMIN 3.8 g/dL (3.4-5.0); ANION GAP 14.2 (8-16); CALCIUM 8.6 mg/dL (8.5-10.1); CARBON DIOXIDE 25.4 mmol/L (21-32); POTASSIUM 4.6 mmol/L (3.5-5.1); TOTAL BILIRUBIN 0.4 mg/dL (0.0-1.0)
[2023-12-13 19:20] VITALS: O2SAT 98
[2023-12-13 19:28] VITALS: TEMP 98.4
[2023-12-13 20:57] VITALS: BP 109/52; PULSE 70; RESP 16; O2SAT 98
== END 2023-12-13 20:56 | disposition home or self-care (01) ==
LOC: MED 18:00
DX: M79.18 Myalgia, other site (principal); R11.0 Nausea; R10.9 Unspecified abdominal pain; Z20.822 Contact with and (suspected) exposure to COVID-19; E11.9 Type 2 diabetes mellitus without complications; I10 Essential (primary) hypertension; Z98.890 Other specified postprocedural states; Z79.899 Other long term (current) drug therapy; Z79.82 Long term (current) use of aspirin
CPT/HCPCS: 36415; 74176; 80053; 85025; 87426; 87804; 96372; 99285; J1885; Q0162

== ENCOUNTER 2023-12-15 11:30 | Emergency (ER) | payer OTHER ==
[~2023-12-15] VITALS: Ht 167.6 cm; Wt 78.9 kg
[2023-12-15 12:00] VITALS: BP 126/74; PULSE 66; RESP 18; TEMP 97.9; O2SAT 97
[2023-12-15] MEDS: NACL 0.9% 1,000 ML IV ONE (15:12)
[2023-12-15 15:13] LABS: BASOPHILS % (AUTO) 0.3 % (0.0-2.0); EOSINOPHILS # (AUTO) 0.1 K/uL (0-0.4); EOSINOPHILS % (AUTO) 1.2 % (0.0-4.0); HEMATOCRIT 40.4 % (36-52); HEMOGLOBIN 13.5 g/dL (12.0-18.0); LYMPHOCYTES # (AUTO) 1.5 K/uL (2.0-11.5); LYMPHOCYTES % (AUTO) 33.6 % (20.5-51.1); MEAN CORPUSCULAR HEMOGLOBIN 30 pg (27-31); MEAN CORPUSCULAR HGB CONC 33 g/dL (33-37); MONOCYTES # (AUTO) 0.5 K/uL (0.8-1.0); MONOCYTES % (AUTO) 11.5 % (1.7-9.3); NEUTROPHILS # (AUTO) 2.3 K/uL (1.8-7.7); NEUTROPHILS % (AUTO) 53.4 % (42.2-75.2); PLATELET COUNT (AUTO) 198 K/uL (140-450); RED CELL DISTRIBUTION WIDTH 16.5 % (11.6-13.7); WHITE BLOOD COUNT (AUTO) 4.4 K/uL (4.8-10.8)
[2023-12-15 15:39] LABS: ALBUMIN 3.4 g/dL (3.4-5.0); ANION GAP 11.2 (8-16); CARBON DIOXIDE 28.4 mmol/L (21-32); POTASSIUM 3.6 mmol/L (3.5-5.1); TOTAL BILIRUBIN 0.3 mg/dL (0.0-1.0); TOTAL PROTEIN, SERUM 6.5 g/dL (6.4-8.2)
[2023-12-15] MEDS ORDERED: ONDA-188 SL (15:51)
== END 2023-12-15 16:03 | disposition home or self-care (01) ==
LOC: MED 11:30
DX: R11.2 Nausea with vomiting, unspecified (principal); R19.7 Diarrhea, unspecified; E11.9 Type 2 diabetes mellitus without complications; I10 Essential (primary) hypertension; K21.9 Gastro-esophageal reflux disease without esophagitis; Z79.4 Long term (current) use of insulin; Z79.899 Other long term (current) drug therapy
CPT/HCPCS: 36415; 80053; 83690; 85025; 96360; 99283; J7030

== ENCOUNTER 2024-01-05 22:07 | Emergency (ER) | payer OTHER ==
[~2024-01-05] VITALS: Ht 167.6 cm; Wt 79.8 kg
[~2024-01-05 22:07] MED LIST changes: +ONDA-188 SL
[2024-01-05 22:30] VITALS: BP 140/73; PULSE 68; RESP 20; TEMP 97.4; O2SAT 98
[2024-01-05 23:54] LABS: BASOPHILS # (AUTO) 0.1 K/uL (0.00-0.22); BASOPHILS % (AUTO) 0.5 % (0.0-2.0); EOSINOPHILS # (AUTO) 0.1 K/uL (0-0.4); EOSINOPHILS % (AUTO) 1.3 % (0.0-4.0); HEMOGLOBIN 12.2 g/dL (12.0-18.0); LYMPHOCYTES # (AUTO) 2.3 K/uL (2.0-11.5); LYMPHOCYTES % (AUTO) 24.5 % (20.5-51.1); MEAN CORPUSCULAR HEMOGLOBIN 30 pg (27-31); MEAN CORPUSCULAR HGB CONC 33 g/dL (33-37); MEAN CORPUSCULAR VOLUME 90.8 fL (80-94); MONOCYTES # (AUTO) 0.6 K/uL (0.8-1.0); MONOCYTES % (AUTO) 6.7 % (1.7-9.3); NEUTROPHILS # (AUTO) 6.4 K/uL (1.8-7.7); PLATELET COUNT (AUTO) 186 K/uL (140-450); RED BLOOD CELL COUNT(AUTO) 4.08 MIL/uL (4.20-6.10); RED CELL DISTRIBUTION WIDTH 16.3 % (11.6-13.7); WHITE BLOOD COUNT (AUTO) 9.5 K/uL (4.8-10.8)
[2024-01-06 00:14] LABS: ANION GAP 10.2 (8-16); CALCIUM 8.7 mg/dL (8.5-10.1); CARBON DIOXIDE 28.7 mmol/L (21-32); CREATININE 0.9 mg/dL (0.6-1.3); POTASSIUM 3.9 mmol/L (3.5-5.1)
[2024-01-06 00:54] VITALS: BP 138/73; PULSE 70; RESP 18; TEMP 98; O2SAT 98
== END 2024-01-06 00:54 | disposition home or self-care (01) ==
LOC: MED 22:07
DX: E11.649 Type 2 diabetes mellitus with hypoglycemia without coma (principal); I11.9 Hypertensive heart disease without heart failure; K21.9 Gastro-esophageal reflux disease without esophagitis; Z79.899 Other long term (current) drug therapy; Z79.4 Long term (current) use of insulin
CPT/HCPCS: 36415; 80048; 85025; 99283

== ENCOUNTER 2024-06-23 12:14 | Emergency (ER) | payer OTHER ==
[~2024-06-23] VITALS: Ht 167.6 cm; Wt 82.7 kg
[2024-06-23 12:32] VITALS: BP 143/68; PULSE 62; RESP 18; TEMP 97.2; O2SAT 99
[2024-06-23 14:00] LABS: BASOPHILS % (AUTO) 0.7 % (0.0-2.0); EOSINOPHILS # (AUTO) 0.1 K/uL (0-0.4); EOSINOPHILS % (AUTO) 1.3 % (0.0-4.0); HEMATOCRIT 38.1 % (36-52); HEMOGLOBIN 12.6 g/dL (12.0-18.0); LYMPHOCYTES # (AUTO) 2.4 K/uL (2.0-11.5); LYMPHOCYTES % (AUTO) 41.5 % (20.5-51.1); MEAN CORPUSCULAR HEMOGLOBIN 29 pg (27-31); MEAN CORPUSCULAR HGB CONC 33 g/dL (33-37); MEAN CORPUSCULAR VOLUME 88.5 fL (80-94); MONOCYTES # (AUTO) 0.4 K/uL (0.8-1.0); MONOCYTES % (AUTO) 6.1 % (1.7-9.3); NEUTROPHILS # (AUTO) 2.9 K/uL (1.8-7.7); NEUTROPHILS % (AUTO) 50.4 % (42.2-75.2); PLATELET COUNT (AUTO) 216 K/uL (140-450); RED CELL DISTRIBUTION WIDTH 15.5 % (11.6-13.7); WHITE BLOOD COUNT (AUTO) 5.8 K/uL (4.8-10.8)
[2024-06-23 14:22] LABS: ALBUMIN 3.2 g/dL (3.4-5.0); CREATININE 0.9 mg/dL (0.6-1.3); TOTAL BILIRUBIN 0.3 mg/dL (0.0-1.0)
[2024-06-23 16:29] LABS: APPEARANCE,URINE CLEAR (CLEAR); BILIRUBIN,URINE NEGATIVE (NEGATIVE); BLOOD, URINE NEGATIVE (NEGATIVE); COLOR,URINE YELLOW (YELLOW); LEUKOCYTE ESTERASE ,URINE NEGATIVE (NEGATIVE); NITRITE, URINE NEGATIVE (NEGATIVE); PROTEIN,URINE NEGATIVE (NEGATIVE); UGLUCOSE 3+ (NEGATIVE); UROBILINOGEN,URINE 0.2 EU/dL (0.2 - 1)
[2024-06-23] MEDS ORDERED: ACET500T99 PO (16:40)
[2024-06-23] MEDS: KETOROLAC 30 MG/ML VIAL IVP ONE (16:43)
[2024-06-23 17:23] VITALS: BP 125/68; PULSE 72; RESP 16; TEMP 98; O2SAT 99
== END 2024-06-23 17:25 | disposition home or self-care (01) ==
LOC: MED 12:14
DX: R10.31 Right lower quadrant pain (principal); R30.0 Dysuria; I25.2 Old myocardial infarction; E11.9 Type 2 diabetes mellitus without complications; K21.9 Gastro-esophageal reflux disease without esophagitis; I10 Essential (primary) hypertension; Z79.899 Other long term (current) drug therapy; Z79.82 Long term (current) use of aspirin
CPT/HCPCS: 36415; 74177; 80053; 81003; 83690; 85025; 96374; 99285; J1885; Q9967